=== PATIENT | male | born 1950 | race Two or more races ===

== ENCOUNTER → 2024-05-17 | Outpatient (CLI) | payer MEDICARE, MEDICAID, SELFPAY ==
--- NOTE | 2024-05-17 14:20 | XR_ITS ---
Examination: Bone densitometry Date and time of exam:May 17, 2024 1355 hours INDICATIONS: 74-year-old male with diagnosis age related osteoporosis, diabetic Technique: Lumbar spine and hip total bone mineralization values of an calculated. Peak reference and age match control results have been displayed. Findings: Lumbar spine total bone mineralization is1.247 gm/cm2. This is 1.4 standard deviations above peak reference. This is 2.4 standard deviations above age-matched controls. Hip total bone mineralization is 1.124 gm/cm2 This is 0.5 standard deviations above peak reference. This is 1.3 standard deviations above age-matched controls Impression: There is normal mineralization based on lumbar spine measurements. There is normal mineralization based on hip measurements
== END | disposition home or self-care (01) ==
LOC: CDIM 13:34
PROVIDERS: PCP Family Medicine; Referring Provider Family Medicine; Visit Provider Family Medicine
DX: M81.0 Age-related osteoporosis without current pathological fracture (principal)
CPT/HCPCS: 77080